=== PATIENT | male | born 1965 | race Two or more races ===

== ENCOUNTER 2023-08-28 14:32 | Emergency (ER) | payer MEDICAID, OTHER ==
[~2023-08-28] VITALS: Ht 170.2 cm; Wt 163.6 kg
[2023-08-28] MEDS: KETOROLAC TROMETH 60MG/2ML VIAL IM ONE (15:53)
[2023-08-28 16:57] LABS: Basophils # (auto) 0.1 10 ^3/uL (0-0.2); Basophils % (auto) 0.5 % (0.0-2.0); Lymphocytes # (auto) 2.8 10 ^3/uL (0.4-5.4); Monocytes # (auto) 1.2 10 ^3/uL (0-1.3); Monocytes % (auto) 8.1 % (0.0-12.0); Nucleated Red Blood Cells % 0.1 %
[2023-08-28 17:00] LABS: Eosinophils # (auto) 0.6 10 ^3/uL (0-0.8); Eosinophils % (auto) 4.5 % (0.0-7.0); Hemoglobin 16.7 g/dL (13.5-17.5); Lymphocytes % (auto) 19.5 % (10.0-50.0); Mean Corpuscular Hemoglobin 27.2 pg (28.0-32.0); Mean Corpuscular Hgb Conc. 32.8 g/dL (32.0-36.0); Mean Corpuscular Volume 82.8 fL (80.0-100.0); Neutrophils # (auto) 9.7 10 ^3/uL (1.6-8.6); Neutrophils % (auto) 67.4 % (37.0-80.0); Red Blood Cells 6.16 10^6/uL (4.5-5.90); Red Cell Distribution Width 15.4 % (11.8-14.3); White Blood Cell 14.4 10^3/uL (4.4-10.8)
[2023-08-28 17:11] LABS: Alanine Aminotransferase 29 U/L (7-40); Alkaline Phosphatase 59 U/L (46-116); Anion Gap 10 (5-15); Aspartate Aminotransferase 27 U/L (13-40); BUN/Creatinine Ratio 19.5 (10.0-20.0); Blood Urea Nitrogen 15 mg/dL (9-23); Calcium 9.5 mg/dL (8.7-10.4); Carbon Dioxide 25 mmol/L (20-30); Chloride 102 mmol/L (98-107); Glucose 79 mg/dL (74-106); Lipase 38 U/L (12-53); Potassium 4.3 mmol/L (3.5-5.1); Sodium 137 mmol/L (136-145)
[2023-08-28 17:12] LABS: Albumin 4.1 g/dL (3.2-4.8); Bilirubin, Total 0.6 mg/dL (0.2-1.0)
[2023-08-28 18:24] VITALS: BP 139/96; PULSE 75; RESP 18; O2SAT 96
[2023-08-28] MEDS ORDERED: FURO1TAB31 PO (18:26)
[2023-08-28] MEDS ORDERED: ACE3T PO (18:26)
[2023-08-28] MEDS ORDERED: IBUP-1455 PO (18:26)
[2023-08-28] MEDS: FUROSEMIDE 20 MG TAB PO ONE (18:29)
== END 2023-08-28 18:35 | disposition home or self-care (01) ==
LOC: ER 14:32
DX: R60.0 Localized edema (principal); E66.01 Morbid (severe) obesity due to excess calories; Z68.43 Body mass index [BMI] 50.0-59.9, adult
CPT/HCPCS: 36415; 80053; 83605; 83690; 83880; 84484; 85025; 93970; 96372; 99285; J1885